=== PATIENT | male | born 1960 | race Caucasian/White ===

== ENCOUNTER 2018-09-13 12:27 | Outpatient (CLI) | payer BC ==
--- NOTE | 2018-09-13 15:29 | CT ---
POSTCONTRAST SOFT TISSUE NECK CT: Date: 09/13/18 HISTORY: Patient noticed a mass/knot underneath the right neck under the jaw. COMPARISON: None. TECHNIQUE: Postcontrast soft tissue neck CT is performed in the axial plane. Reformatted images are submitted fo r interpretation. FINDINGS: Bilateral ocular lenses are appropriately located. Both globes are intact. Retrobulbar fat is preserv ed. Adequate aeration of the visualized sinuses and mastoid air cells. Visualized brain parenchyma is unremarkable. Aerodigestive tract appears to be patent. No definite mucosal abnormality. Limited evaluation of the oral cavity by dental amalgam artifact. Midline fatty raphe of the tongue is preserved. Symmetric attenuation of the parotid and submandibular glands. Thyroid gland is unremarkable. Symmetr ic attenuation of the sternocleidomastoid muscles. No evidence of lymphadenopathy by size criteria. Grossly, the great vessels of the neck are patent. Cervical spine vertebral body height is maintained. There is no fracture. No malalignment. No signifi cant central canal stenosis. Varying degrees of foraminal narrowing. Upper mediastinum and lung apices are unremarkable. In the anterior right aspect of the neck, at the level of the palpable marker, is a complex predomina ntly hypodense focus with areas of enhancement and a peripheral soft tissue component. This lesion is at the level of the hyoid bone, anterior to the hyoid bone, and abuts the platysmus. 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 Given the presence of irregular peripheral enhanc ement and a prominent soft tissue component, surgical excision is recommended. This cyst measures 3.9 cm mediolateral x 3.3 cm anterior posterior x 4.4 cm craniocaudal. IMPRESSION: Complex predominantly hypodense mass with areas of enhancement and irregular peripheral soft tissue c omponent. 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 POS: [facility]
== END 2018-09-13 12:28 | disposition home or self-care (01) ==
LOC: SCSCT 12:27
PROVIDERS: ATTEND Specialist
DX: R22.1 Localized swelling, mass and lump, neck (principal)
CPT/HCPCS: 70491

== ENCOUNTER 2018-09-16 08:28 | Day surgery (SDC) | payer BC ==
[2018-09-15 10:39] VITALS: BMI 35.5
[2018-09-16] MEDS ORDERED: Bacitracin Zinc Ointment 30 gm TUBE ONE (10:37)
[2018-09-16] MEDS ORDERED: Lidocaine 1% w/Epinephrine 1:100K 20 ML VIAL ONE (10:37)
[2018-09-16] MEDS ORDERED: Fentanyl 100 MCG/2 ML VIAL ONE ×3 (10:44→13:31)
[2018-09-16] MEDS ORDERED: Succinylcholine Chloride 20 MG/ML 10 ml SYRINGE FS ONE (13:17)
[2018-09-16] MEDS ORDERED: Lidocaine 1% PF 5 ML VIAL ONE (13:17)
[2018-09-16] MEDS ORDERED: Dexamethasone 20 MG/5 ML VIAL ONE (13:17)
[2018-09-16] MEDS ORDERED: Rocuronium Bromide 10 MG/ML (10ML VIAL) ONE (13:17)
[2018-09-16] MEDS ORDERED: Ondansetron PF 4 MG/2 ML Vial ONE (13:17)
[2018-09-16] MEDS ORDERED: PROPOFOL 200 MG/20 ML VIAL ONE (13:17)
[2018-09-16] MEDS ORDERED: Glycopyrrolate 0.2 MG/ML 5 ML SYRINGE ONE (13:17)
[2018-09-16] MEDS ORDERED: PHENYLEPHRINE-NS 100 MCG/ML 10 ML SYRINGE ONE (13:17)
[2018-09-16] MEDS ORDERED: HYDROcodone/Acetaminophen 5/325 mg Tablet ONE (14:37)
--- NOTE | 2018-09-17 14:08 | OP ---
DATE OF PROCEDURE: 09/16/2018 PREOPERATIVE DIAGNOSIS: Thyroglossal duct cyst. POSTOPERATIVE DIAGNOSES: 1. Right branchial cleft cyst. 2. Large branchial cleft cyst. PROCEDURES PERFORMED: 1. Excision of large branchial cleft cyst. 2. Direct laryngoscopy. DESCRIPTION OF PROCEDURE: After consent was obtained, the patient was identified and brought to the operating room and placed on operating table in supine position. General endotracheal anesthesia was obtained. The patient was positioned for surgery. The patient underwent direct laryngoscopy with systematic evaluation of the oral cavity, oropharynx, hypopharynx, and larynx without any abnormalities identified especially with regard to the right tonsillar fossa and base of tongue region. No abnormalities were identified. We then prepped and draped the patient, extended the neck. An incision was made in the natural skin crease down through skin and subcutaneous tissues. We turned our attention to the mass, which was quite large and meticulously dissected out from the surrounding tissues including the platysma was elevated from the surrounding mass, and we dissected meticulously around the mass until the strap muscles were encountered. We then continued our dissection. There was a fair amount of inflammation, which forced us to resect some of the surrounding soft tissues as well in order to dissect it freely. When we ultimately were able to dissect around the tract of the hyoid bone, it was noted that the tract of the mass actually tracked more laterally toward the great vessels and not toward the midportion of the hyoid. We continued dissection laterally on the line between the great vessels and suture ligated its insertions of the pharyngeal mucosa. We then irrigated the wound and obtained hemostasis. We then turned our attention to closure. Fibrillar Surgicel was placed in the deep aspect of the wound and the platysma. Strap muscles, platysma, and subcutaneous tissues were reapproximated with a running subcuticular suture. A sterile dressing was applied. The patient was awakened and extubated, taken to recovery room in stable condition. Job ID: [id number]
== END 2018-09-16 15:01 | disposition home or self-care (01) ==
LOC: SDC 08:28
PROVIDERS: ATTEND Specialist
PROC: 0WB60ZX Excision of Neck, Open Approach, Diagnostic (ICD-10-PCS; principal; 2018-09-16)
DX: C73 Malignant neoplasm of thyroid gland (principal); C77.0 Secondary and unspecified malignant neoplasm of lymph nodes of head, face and neck; I10 Essential (primary) hypertension; E78.1 Pure hyperglyceridemia; Z79.899 Other long term (current) drug therapy; Z98.890 Other specified postprocedural states
CPT/HCPCS: 88305; 88341; 88342; 93005; 93010; J1100; J2001; J2405; J2704; J3010